=== PATIENT | male | born 1970 | race Caucasian/White ===

== ENCOUNTER 2017-10-14 16:32 | Emergency (ER) | payer SELFPAY ==
[~2017-10-14] VITALS: Ht 175.3 cm; Wt 79.0 kg
[2017-10-14 16:35] VITALS: BP 140/55; PULSE 76; RESP 16; TEMP 98.2; O2SAT 98
[2017-10-14] MEDS ORDERED: CLIN300C5 PO (17:14)
--- NOTE | 2017-10-14 17:14 | PD ---
HPI Chief Complaint: Edema Time Seen by Provider: 17:07 Travel History International Travel<30 days: No Contact w/Intl Traveler<30days: No Traveled to known affect area: No History of Present Illness HPI 47-year-old male here with left forearm pain and swelling. Symptom onset 3 days. Possible insect bite. Denies fever or chills. Denies history of IV drug use. Pain is constant, throbbing, nonradiating. Symptom severity is moderate. No alleviating factors. PFSH Past Medical History Hx Anticoagulant Therapy: No Asthma: Yes (uses primatene mist) Diabetes: No Diminished Hearing: No Tetanus Vaccination: < 5 Years Influenza Vaccination: No Social History Alcohol Use: Yes (1-2 BEERS DAILY) Tobacco Use: Yes (1 pk qd) Substance Use: No Allergies-Medications (Allergen,Severity, Reaction): Coded Allergies: No Known Allergies (Verified Adverse Reaction, Unknown, 10/14/17) Reported Meds & Prescriptions Reported Meds & Active Scripts Active No Active Prescriptions or Reported Medications Review of Systems Except as stated in HPI: all other systems reviewed are Neg General / Constitutional: No: Fever Physical Exam Narrative GENERAL: Alert male. Nontoxic appearing. SKIN: Warm and dry. Erythema to the left forearm HEAD: Normocephalic. EYES: No injection or drainage. NECK: Supple, trachea midline. CARDIOVASCULAR: Regular rate and rhythm without murmurs, gallops, or rubs. RESPIRATORY: Breath sounds equal bilaterally. No accessory muscle use. MUSCULOSKELETAL: No cyanosis. Left upper extremity: Notable warmth, erythema, swelling to the left forearm lateral aspect with central lesion consistent with insect bite. No fluctuance. Data Data Last Documented VS Vital Signs Date Time Temp Pulse Resp B/P (MAP) Pulse Ox O2 Delivery O2 Flow Rate FiO2 10/14/17 16:45 Room Air 10/14/17 16:35 98.2 76 16 140/55 (83) 98 MDM Medical Decision Making Medical Screen Exam Complete: Yes Emergency Medical Condition: Yes Differential Diagnosis Infected insect bite, abscess, cellulitis Narrative Course 47-year-old male here with left upper extremity cellulitis. His vital signs are stable. Afebrile. Nontoxic appearing. Diagnosis Primary Impression: Cellulitis Qualified Codes: L03.114 - Cellulitis of left upper limb Referrals: [facility] Clindamycin (Clindamycin) 300 Mg Cap 300 MG PO Q6H for Infection for 10 Days, #40 CAP 0 Refills Prov: Caryn Berry 10/14/17 Disposition: 01 DISCHARGE HOME Condition: Stable Caryn Berry Oct 14, 2017 17:14
== END 2017-10-14 17:30 | disposition home or self-care (01) ==
LOC: PHEFT 16:32
DX: L03.114 Cellulitis of left upper limb (principal); J45.909 Unspecified asthma, uncomplicated; Z72.0 Tobacco use; Z72.89 Other problems related to lifestyle
CPT/HCPCS: 99283